=== PATIENT | female | born 1980 | race Two or more races ===

== ENCOUNTER 2016-07-24 10:14 | Emergency (ER) | payer MEDICAID ==
[~2016-07-24] VITALS: Ht 182.9 cm; Wt 135.2 kg
[~2016-07-24 10:14] MED LIST: DIVA125T12 PO; DIVA250T51 OR; DIVA250T61 PO
[2016-07-24 11:59] LABS: Basophils # (auto) 0 uL; Basophils % (auto) 0.5 % (0.0-2.0); DEFINITIVE VIEW TRANSMISSION; Eosinophils # (auto) 0 uL; Eosinophils % (auto) 0.5 % (0.0-7.0); Hematocrit 31.1 % (36.0-46.0); Hemoglobin 10.1 g/dL (12.2-16.2); Lymphocytes # (auto) 2.1 uL; Lymphocytes % (auto) 35.1 % (10.0-50.0); Mean Corpuscular Hemoglobin 25.9 pg (28.0-32.0); Mean Corpuscular Hgb Conc. 32.4 g/dL (32.0-36.0); Mean Platelet Volume 8.8 fL (7.4-10.4); Monocytes # (auto) 0.8 uL; Monocytes % (auto) 14.3 % (0.0-12.0); Neutrophils # (auto) 2.9 uL; Neutrophils % (auto) 49.6 % (37.0-80.0); Platelet Count (auto) 197 10^3/uL (140-450); Red Cell Distribution Width 17.6 % (11.6-16.0); White Blood Cell 5.9 10^3/uL (4.4-10.8)
[2016-07-24 12:09] LABS: Albumin 2.9 g/dL (3.4-5.0); BUN/Creatinine Ratio 17.5; Bilirubin, Total 0.3 mg/dL (0.2-1.0); Calcium 8.4 mg/dL (8.5-10.1); Total Protein 6.1 g/dL (6.4-8.2)
[2016-07-24 17:19] VITALS: BP 107/65
== END 2016-07-24 17:47 | disposition home or self-care (01) ==
LOC: ER 10:14
DX: R60.0 Localized edema (principal); D50.9 Iron deficiency anemia, unspecified; F17.210 Nicotine dependence, cigarettes, uncomplicated; Z88.1 Allergy status to other antibiotic agents
CPT/HCPCS: 36415; 71010; 80053; 84702; 85025